=== PATIENT | female | born 1955 | race African-American/Black ===

== ENCOUNTER 2020-07-21 15:11 | Emergency (ER) | payer BC, SELFPAY ==
[2020-07-21] VITALS (9 sets, daily range): BP systolic 155–179; BP diastolic 62–94; PULSE 18–90; RESP 18–20; TEMP 36.8–37.3; O2SAT 97–98; BMI 25.2
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
[2020-07-21 17:57] LABS: Basophils Percent Auto 0.6 % (0-2); Eosinophils Absolute Auto 0.3 X10*3/uL (0.0-0.4); Hemoglobin 13.4 g/dl (12.0-16.0); Imm Gran Abs Auto 0.01 X10*3/uL (0.00-0.03); Imm Gran Pct Auto 0.2 % (0.0-0.4); Lymphocytes Absolute Auto 2.6 X10*3/uL (1.2-4.9); Lymphocytes Percent Auto 40.5 % (20-40); MANUAL DIFF FLAG NO; Mean Corpuscular HGB Conc 33.5 g/dl (31.0-35.0); Mean Corpuscular Hemoglobin 31.8 pg (27.0-33.0); Mean Corpuscular Volume 94.8 fL (80-98); Mean Platelet Volume 10.4 fL (9.4-12.3); Monocytes Absolute Auto 0.4 X10*3/uL (0.1-1.2); Monocytes Percent Auto 6.3 % (2-11); Neutrophils Absolute Auto 3.1 X10*3/uL (2.0-8.3); Neutrophils Percent Auto 48.4 % (45-73); Platelet Count 231 X10*3/uL (160-400); Red Blood Count 4.22 X10*6/uL (4.20-5.50); Red Cell Distribution Width 12.3 % (11.0-16.0); White Blood Count 6.5 X10*3/uL (4.8-10.8)
--- NOTE | 2020-07-21 17:57 | CT_ITS ---
EXAM: Noncontrast CT scan of the head and cervical spine. INDICATION: Dizziness with syncope. Acute on chronic neck pain after fall. COMPARISON: No similar prior imaging available for comparison at this institution. TECHNIQUE: Axial slices were obtained from skull base to vertex and displayed. This was followed by helical, multislice, multidetector axial images from the occiput to the upper thorax. Coronal and sagittal reformats of the cervical spine in addition to coronal reformats of the head were obtained at the technologist workstation. DLP: 1047 mGy-cm FINDINGS: HEAD: There is no evidence of acute intracranial hemorrhage or territorial infarction. No abnormal mass effect or midline shift is appreciated. Flores-white differentiation is well preserved. No extra-axial fluid collections. The ventricular system and cortical sulci are normal in size. There are minimal areas of low density in the periventricular and subcortical white matter, most consistent with sequelae of microvascular ischemic change. The osseous structures and soft tissues are normal. There are mild calcifications of the cavernous internal carotid arteries. The visualized paranasal sinuses and mastoid air cells are well aerated. Tiny suspected mucus tension cyst within the left maxillary sinus. SPINE: There is mild reversal of the normal cervical lordosis. Alignment is otherwise unremarkable. Vertebral body heights are well-maintained. There is mild narrowing of the C4/C5 and C5/C6 disc space heights. There are calcifications of the anterior and posterior longitudinal ligaments. A few small anterior osteophytes are noted. No prevertebral soft tissue swelling. Visualized lung apices are well aerated. CT/CT cervical spine wo con IMPRESSION: 1. No acute intracranial pathology. 2. No fractures or dislocations of the cervical spine. This CT examination was performed using dose optimization techniques as appropriate, variously including the following: *Automated exposure control *Adjustment of mA and/or kV according to patient size (this includes techniques or standardized protocols for targeted exams where dose is matched to indication/reason for exam; i.e. extremities or head) *Use of iterative reconstruction technique
[2020-07-21] MEDS: 0.9 % Sodium Chloride 1,000 ML 999 ML IVCONT ×2 (18:01→21:47)
[2020-07-21 18:30] LABS: Troponin-I High Sensitivity < 3.5 ng/L (<3.5-17.0)
[2020-07-21] MEDS: ondansetron HCL 4 MG/2 ML VIAL IVPUSH (18:30)
[2020-07-21] MEDS: ALPRAZolam 0.5 MG TABLET PO ×2 (18:30→19:31)
[2020-07-21] MEDS: SUMAtriptan succinate 25 MG TABLET PO (18:34)
[2020-07-21 18:49] LABS: Anion Gap 12 (12-20); Blood Urea Nitrogen 17 mg/dL (9-16); Carbon Dioxide 30 mmol/L (22-29); Chloride 101 mmol/L (96-108); Creatinine Clr Calc Pharmacy 51.4; Estimated Glomerular Filt Rate 55; Glucose Random 343 mg/dL (60-115); Potassium 4.8 mmol/l (3.3-5.1); Sodium 138 mmol/L (135-145)
== END 2020-07-21 22:56 | disposition home or self-care (01) ==
PROVIDERS: Emergency Provider Internal Medicine
DX: I95.1 Orthostatic hypotension (principal); H66.002 Acute suppurative otitis media without spontaneous rupture of ear drum, left ear; M54.2 Cervicalgia; F41.1 Generalized anxiety disorder; F43.0 Acute stress reaction; Z79.899 Other long term (current) drug therapy
CPT/HCPCS: 36415; 70450; 72125; 80048; 84484; 85025; 96361; 96374; 96375; 99284; J2405

== ENCOUNTER 2020-08-04 12:21 | Emergency (ER) | payer BC, SELFPAY ==
[2020-08-04 12:24] VITALS: PULSE 93; RESP 22; TEMP 36.6; O2SAT 98; BMI 24.4
== END 2020-08-04 14:40 | disposition left against medical advice (07) ==
PROVIDERS: Emergency Provider Emergency Medicine
DX: L23.9 Allergic contact dermatitis, unspecified cause (principal)
CPT/HCPCS: 99281; 99282

== ENCOUNTER 2020-08-06 11:29 | Emergency (ER) | payer BC, SELFPAY ==
[2020-08-06 11:43] VITALS: BP 148/80; BP 164/95; PULSE 86; PULSE 88; RESP 16; TEMP 36.5; O2SAT 100; BMI 24.7
--- NOTE | 2020-08-06 12:05 | PC.NURSE ---
pt refused to be placed on manager monitoring stating that she is allergic to glue and is afraid to have the manager monitoring stickers applied for fear of having/getting an allergic reaction.
--- NOTE | 2020-08-06 12:06 | ED.FALL ---
HPI - Fall General Chief Complaint: Fall Stated Complaint: syncope Time Seen by Provider: 08/06/20 11:57 Source: patient Mode of arrival: ambulatory Limitations: no limitations History of Present Illness HPI Narrative: 65-year-old female with a past medical history of asthma, depression, diabetes and migraines, multiple allergies here with complaints of fall. The patient tells me that she was at her doctor to follow-up for her ear infections and while standing she started to feel lightheaded and next thing she knew she was lying on the ground with people around her. She tells me that she has had previous episodes over the last few months. She tells me she has been seen by her primary care doctor and she has been seen here in this emergency department. Most recently she was seen July [address] scan of her head and neck which were unremarkable. Per patient her blood pressure changes when she changes positions and she received 2 L of fluid during that ER visit and felt much improved. She tells me she is unable to have EKGs because she has a severe allergic reaction to the adhesive in the stickers requiring her to receive an EpiPen. She tells me she refused to have an EKG due to this reaction during her last visit and she would not like to have 1 today during this visit. She also refused a cervical collar from EMS due to an allergy to the Styrofoam in the collar. She tells me she has multiple antibiotic allergies and was started recently on clindamycin for a presumed ear infection. She took 1 dose on August 04 and developed facial swelling. She tells me she spoke to her doctor and was recommended she go to the emergency department however when she got to the emergency department there was too long of a wait and she went home. She tells me that the swelling improved with several doses of Benadryl at home. She does continue to have ear pain and ear drainage which is bilateral. She also has dizziness with position changes. No other complaints. She does know she is very anxious and depressed about her multiple allergies. She is very tearful on arrival and on exam. She tells me she has been seen by 3 different allergists but they refused to do allergy testing because of her severe allergies. complaint: fall Fall from: standing Fall witnessed: yes, by family ( (no incontinence or seizure activity), +head strike ) Place fall occurred: other (doctor office ) Loss of consciousness: yes, seconds Length of LOC: second(s) Prolonged down time: no Symptoms prior to fall: lightheadedness Location of injury: head Severity: mild Associated symptoms (after fall): headache and lightheaded (w/ position changes) Related Data Previous Rx's Medication Instructions Recorded alprazolam [Xanax] 0.5 mg PO BID PRN #10 tab 07/21/20 doxycycline hyclate 100 mg PO BID #20 tab 07/21/20 mirtazapine [Remeron] 15 mg PO BEDTIME #10 tab 07/21/20 sumatriptan succinate 25 mg PO Q2-4H PRN #8 tab 07/21/20 azithromycin See Rx Instructions .ROUTE 08/06/20 .COMPLEX #6 tab Allergies Allergy/AdvReac Type Severity Reaction Status Date / Time acetaminophen [From Percocet] Allergy Unknown Verified 07/21/20 15:26 albuterol Allergy Unknown Verified 07/21/20 15:26 amitriptyline [From Elavil] Allergy Unknown Verified 07/21/20 15:26 amlodipine Allergy Unknown Verified 07/21/20 15:26 aspirin Allergy Unknown Verified 07/21/20 15:26 bismuth subsalicylate Allergy Unknown Verified 07/21/20 15:26 [From Pepto-Bismol] ciprofloxacin Allergy Unknown Verified 07/21/20 15:26 codeine Allergy Unknown Verified 07/21/20 15:26 copanlisib di-hydrochloride Allergy Unknown Verified 07/21/20 15:26 cyclobenzaprine Allergy Unknown Verified 07/21/20 15:26 [From Flexeril] erythromycin base Allergy Unknown Verified 07/21/20 15:26 fluoxetine [From Prozac] Allergy Unknown Verified 07/21/20 15:26 gabapentin [From Neurontin] Allergy Unknown Verified 07/21/20 15:26 hydromorphone [From Dilaudid] Allergy Unknown Verified 07/21/20 15:26 ketorolac [From Toradol] Allergy Unknown Verified 07/21/20 15:26 latex Allergy Unknown Verified 07/21/20 15:26 meperidine [From Demerol] Allergy Unknown Verified 07/21/20 15:26 morphine Allergy Unknown Verified 07/21/20 15:26 naproxen [From Naprosyn] Allergy Unknown Verified 07/21/20 15:26 oxycodone [From Percocet] Allergy Unknown Verified 07/21/20 15:26 penicillin G procaine Allergy Unknown Verified 07/21/20 15:26 propoxyphene [From Darvon] Allergy Unknown Verified 07/21/20 15:26 tramadol [From Ultram] Allergy Unknown Verified 07/21/20 15:26 venlafaxine [From Effexor] Allergy Unknown Verified 07/21/20 15:26 zolpidem [From Ambien] Allergy Unknown Verified 07/21/20 15:26 Review of Systems Review of Systems: Yes all other systems are reviewed and are negative Constitutional: Constitutional: Reports no additional constitutional complaints, Denies body ache(s), Denies chills, Denies fever(s), Reports frequent falls, Denies headache(s) and Denies weakness Eyes: Eyes: Reports no additional eye complaints and Denies change in vision ENT: Reports system reviewed and no additional complaints, except as documented, Reports dizziness, Reports ear discharge, Reports otalgia, Denies headache(s), Denies nasal congestion, Denies nasal discharge and Denies neck pain Cardiovascular: Cardiovascular: Reports no additional cardiovascular complaints, Denies chest pain, Denies leg edema and Denies dyspnea Respiratory: Respiratory: Reports no additional respiratory complaints, Denies cough and Denies dyspnea Gastrointestinal: Gastrointestinal: Reports no additional gastrointestinal complaints, Denies abdominal pain, Denies diarrhea, Denies nausea and Denies vomiting Genitourinary: Genitourinary: Reports no additional female genitourinary complaints and Denies urinary incontinence Musculoskeletal: Musculoskeletal: Reports no additional musculoskeletal complaints, Denies back pain, Denies arthralgias, Denies joint swelling, Denies neck pain, Denies numbness and Denies tingling Integumentary/Breasts: Skin/Breast: Reports system reviewed and no additional complaints, except as docu and Denies rash Neurologic: Reports system reviewed and no additional complaints, except as documented, Denies Abnormal speech present, Reports dizziness, Reports frequent falls, Denies headache(s), Denies numbness, Denies tingling and Denies weakness PMFSH Past Medical History Attestation statement: The following information was validated with the patient. Source: old records reviewed and nursing notes reviewed Medical History Asthma Depression Diabetes Migraine Social History Social History Smoking Status: Never smoker Use of substances other than those prescribed or required for medical reasons: No Advance Directives: No Advance Directives Information Provided: No Physical Exam Vital Signs: Vital Signs: Last Vital Signs Temp 97.9 F 08/06/20 16:17 Pulse 86 08/06/20 16:17 Resp 16 08/06/20 16:17 BP 152/100 H 08/06/20 16:17 Pulse Ox 99 08/06/20 16:17 Body Mass Index 24.7 Const: General: cooperative, healthy appearing, comfortable and no acute distress Orientation/consciousness: patient oriented x3 Limitations: no limitations HENMT: Head: Yes normal to inspection Ears: hearing grossly normal bilaterally, external ears normal, mastoids normal, no periauricular adenopathy, Abnormal EAC present erythema (mild ) and edema (mild ); no otic discharge, external ear abnormal and TM abnormal (mild bulging/dullness bilaterally. TM intact) General nose exam: Normal external nose present Face and sinus: Yes normal facial exam Mouth: Normal oral and palatal mucosa present Throat: Yes posterior oropharynx normal Eyes: General: appearance normal, both eyes and all related structures Pupils: Equal, round and reactive pupils present Neck: Neck: Yes normal visual inspection Chest: Chest palpation & inspection: normal inspection of the chest Resp: Effort & Inspection: normal respiratory effort Auscultation: clear to auscultation bilaterally Cardio: Rate: regular rate Rhythm: regular rhythm Peripheral pulses: Peripheral pulses 2+ throughout GI: Inspection: Yes normal to inspection Palpation (GI): Soft to palpation and nontender Auscultation: normal bowel sounds Back/Spine/Pelvis: Thoracic/Lumbar Spine: thoracic and lumbar spine normal to inspection Skin: General skin exam: no rashes or lesions noted Neuro: General: patient oriented x3, Normal light touch and pain sensation, no focal motor deficits, normal sensation to monofilament and Unable to assess gait Cranial nerves: Yes CN's II-XII intact bilaterally, Yes Equal, round and reactive pupils present, Yes Bilaterally intact EOM present, Yes Nystagmus not present, Yes Normal facial strength present and Yes Midline tongue present Cognition (Neuro): normal cognition Speech: No Abnormal speech present Gait exam (Neuro): Unable to assess gait Motor exam (neuro): 5/5 motor strength present throughout Sensory Exam: Normal double simultaneous stimulation for sensation Deep tendon reflexes (DTR's): Right patellar reflex intensity grade: 2+ and Left patellar reflex intensity grade: 2+ Coordination: [id number] test normal and duyd-[id number] test normal Extrem: General: Yes normal to inspection Course Course Course Narrative: 65-year-old female here with reports of a fall and possible syncopal episode with history of same. Preceding symptoms of feeling lightheaded and dizzy. Also complaining otalgia and bilateral ear discharge with known otitis. Patient has multiple medication allergies well as non medication allergies and recently tried a dose of clindamycin for her ears but had a allergic reaction to this. She is currently untreated. She was at her primary care doctor today for an appointment when this episode happened. On arrival she has stable vital signs. She is very anxious and tearful. She has complaints of headache but tells me she had this prior to her fall and has had this for quite some time. No overt injuries. Normal neurological exam. I did explain to the patient that I would like to do a CT scan of her head. She declined this as she is concerned that she just had a CT scan on July 21 and she does not want to be exposed to radiation. I explained to her that she may have an injury and CT scan is the best way to evaluate this but she did decline understanding that there may be a small area of bleeding or a fracture there that I cannot tell by exam. I also asked the patient if we could perform an EKG. She tells me that she has a severe allergic reaction to the adhesive and the EKG stickers and does not want to have one. On review of the note from her last visit this was also remarked on. I did offer to premedicate the patient and offered some reassurance that she is in a safe place and we can watch her closely if she were to have as allergic reaction. However, she declined the EKG knowing that she may have an abnormal cardiac rhythm or signs of ischemia on her EKG. The patient did agree to have labs and orthostatic vital signs done. During the entire exam she is very tearful, anxious, admits to depression. She denies suicidal ideation. She tells me she is very frustrated with her multiple allergies and feels like no one is listening or able to help her. I did offer some reassurment at the bedside. She tells me she has seen multiple allergies but they refused to do allergy testing on her due to her severe allergies. I find this unlikely and I did advise the patient to seek care elsewhere. Patient shows me pictures on her phone of her severe allergic reactions in which she has some mild redness over the chest and bilateral periorbital swelling drainage and injection. Will have care team come and speak to patient. 1400-labs reviewed and unremarkable. Reviewed patient's orthostatics. There was a 10 bpm increase in her heart rate but her blood pressure was stable. However, she felt very symptomatic felt dizzy and lightheaded and had to be assisted back to the bed. Will give normal saline bolus x 2 and reassess. 1730-Went to re-evaluate patient as her IV fluids are done. She tells me she feels less dizzy but has a AGUILERA. I reiterated with the patient that I would like to do a CT of her head. She declined this and is aware she may have a underlying injury such as an ICH. She does not want to be exposed to any radiation. I discussed minimal exposure but she declined. Offered tylenol but patient refused this as she is allergic to aspirin and she is concerned tylenol has aspirin in it. I explained to her that it does not have aspirin in it but she continues to tell me she is allergic. After lengthy discussion and review of allergies list with patient she has agreed on azithromycin x 5 days for her bilateral AOM which is mild. I offered that the patient can wait as her exam is mild and she can follow-up with her PCP but she declined this and was like to be treated with antibiotics as she previously had a TM rupture from an untreated AOM and she does not want this to happen again. I did explain to her that I cannot guarantee she will not have an allergic reaction although from pictures she shows me most of her allergic reactions seem mild and she has none that are typical for anaphylaxis. The patient is frustrated that we do not seem to have an explanation for her allergy symptoms and I discussed with her that the ED does not do allergy testing. She should seek a second opinion from another montessori paraprofessional if she does not feel like her needs are not being met. Patient made multiple requests to me for xanax refills however seen here 07/21 and provided a refill of 10 tabs. I recommended the patient call her PCP for a refill as I do not feel comfortable providing another refill. Patient ambulated with steady gait. Stable vital signs on discharge. MDM - Fall Medical Records Attestation: I reviewed the patient's medical records. Lab Data Attestation: I reviewed the patient's lab results. Result diagrams: 08/06/20 13:12 08/06/20 13:12 Labs: Lab Results 08/06/20 08/06/20 08/06/20 Range/Units 13:12 13:12 13:12 WBC 5.4 (4.8-10.8) X10*3/uL RBC 4.15 L (4.20-5.50) X10*6/uL Hgb 13.4 (12.0-16.0) g/dl Hct 39.1 (37-47) % MCV 94.2 (80-98) fL MCH 32.3 (27.0-33.0) pg MCHC 34.3 (31.0-35.0) g/dl RDW 12.2 (11.0-16.0) % Plt Count 229 (160-400) X10*3/uL MPV 9.8 (9.4-12.3) fL Immature Gran % (Auto) 0.2 (0.0-0.4) % Neut % (Auto) 44.8 L (45-73) % Lymph % (Auto) 43.8 H (20-40) % [place] % (Auto) 6.3 (2-11) % Eos % (Auto) 4.2 H (0-4) % Baso % (Auto) 0.7 (0-2) % Lymph # (Auto) 2.4 (1.2-4.9) X10*3/uL [place] # (Auto) 0.3 (0.1-1.2) X10*3/uL Eos # (Auto) 0.2 (0.0-0.4) X10*3/uL Baso # (Auto) 0.0 (0.0-0.2) X10*3/uL Abs Immat Gran (auto) 0.01 (0.00-0.03) X10*3/uL Absolute Neuts (auto) 2.4 (2.0-8.3) X10*3/uL Absolute Nucleated RBC 0.000 (0.0-0.012) X10*3/uL Nucleated RBC % (auto) 0.0 (0.0-0.2) /100WBC Sodium 138 (135-145) mmol/L Potassium 4.4 (3.3-5.1) mmol/l Chloride 101 (96-108) mmol/L Carbon Dioxide 33 H (22-29) mmol/L Anion Gap 8 L (12-20) BUN 15 (9-16) mg/dL Creatinine 0.93 (0.5-1.4) mg/dL Estim Creat Clear Calc 51.3 Estimated GFR > 60 Random Glucose 278 H (60-115) mg/dL Calcium 9.1 (8.4-10.2) mg/dL Magnesium 1.9 (1.6-2.6) mg/dL Total Bilirubin 0.5 (0.0-1.0) mg/dL Direct Bilirubin 0.2 (0.0-0.5) mg/dL AST 15 (5-31) U/L ALT 14 (0-31) U/L Alkaline Phosphatase 64 (39-117) U/L Troponin I High Sens < 3.5 (<3.5-17.0) ng/L Total Protein 6.7 (6.5-8.0) g/dL Albumin 3.8 (3.5-5.0) g/dL Discharge Plan Discharge Clinical Impression: Fall Qualifiers: Encounter type: initial encounter Qualified Code(s): W19.XXXA - Unspecified fall, initial encounter Otitis externa Qualifiers: Otitis externa type: unspecified type Chronicity: chronic Laterality: bilateral Qualified Code(s): H60.63 - Unspecified chronic otitis externa, bilateral Otitis media Qualifiers: Otitis media type: unspecified Chronicity: acute Qualified Code(s): H66.90 - Otitis media, unspecified, unspecified ear Patient Disposition: Home, Self-Care Instructions: Ear Infection (ED), Fall Prevention (ED) Additional Instructions: You need to seek another opinion for an montessori paraprofessional. You need allergy testing and they are used to working with patient with severe allergies. You were offered and EKG and a CT scan of head but you declined this. You need to call your PCP for a refill for your xanax. The emergency department cannot be responsible for filling your home medications. Prescriptions: New azithromycin 250 mg tablet See Rx Instructions .ROUTE .COMPLEX Qty: 6 RF: 0 No Action sumatriptan succinate 25 mg tablet 25 mg PO Q2-4H PRN (Reason: migraine headache) Qty: 8 RF: 0 alprazolam [Xanax] 0.5 mg tablet 0.5 mg PO BID PRN (Reason: anxiety) Qty: 10 RF: 0 mirtazapine [Remeron] 15 mg tablet 15 mg PO BEDTIME Qty: 10 RF: 0 doxycycline hyclate 100 mg tablet 100 mg PO BID Qty: 20 RF: 0 Referrals: Karyna Rodriguez, [employer]PER[employer] [Primary Care Provider] - 2 days Interventions: ED Discharge Assessment Last Done: 08/06/20 18:12 Discharge Date/Time: 08/06/20 18:13
[2020-08-06 12:34] VITALS: BP 155/84; PULSE 82; RESP 18; TEMP 36.6; O2SAT 97
[2020-08-06 12:39] VITALS: BP 168/91; PULSE 87
[2020-08-06 12:40] VITALS: BP 169/90; PULSE 86
[2020-08-06 13:16] LABS: MANUAL DIFF FLAG NO
[2020-08-06 13:18] LABS: Basophils Percent Auto 0.7 % (0-2); Eosinophils Absolute Auto 0.2 X10*3/uL (0.0-0.4); Eosinophils Percent Auto 4.2 % (0-4); Hematocrit 39.1 % (37-47); Hemoglobin 13.4 g/dl (12.0-16.0); Imm Gran Abs Auto 0.01 X10*3/uL (0.00-0.03); Imm Gran Pct Auto 0.2 % (0.0-0.4); Lymphocytes Absolute Auto 2.4 X10*3/uL (1.2-4.9); Lymphocytes Percent Auto 43.8 % (20-40); Mean Corpuscular HGB Conc 34.3 g/dl (31.0-35.0); Mean Corpuscular Hemoglobin 32.3 pg (27.0-33.0); Mean Corpuscular Volume 94.2 fL (80-98); Mean Platelet Volume 9.8 fL (9.4-12.3); Monocytes Absolute Auto 0.3 X10*3/uL (0.1-1.2); Monocytes Percent Auto 6.3 % (2-11); Neutrophils Absolute Auto 2.4 X10*3/uL (2.0-8.3); Neutrophils Percent Auto 44.8 % (45-73); Platelet Count 229 X10*3/uL (160-400); Red Blood Count 4.15 X10*6/uL (4.20-5.50); Red Cell Distribution Width 12.2 % (11.0-16.0); White Blood Count 5.4 X10*3/uL (4.8-10.8)
[2020-08-06 13:35] VITALS: BP 160/87; PULSE 82; RESP 16; TEMP 36.7; O2SAT 100
[2020-08-06 13:41] LABS: Alanine Aminotransferase 14 U/L (0-31); Albumin Level 3.8 g/dL (3.5-5.0); Alkaline Phosphatase 64 U/L (39-117); Anion Gap 8 (12-20); Aspartate Amino Transferase 15 U/L (5-31); Bilirubin Direct 0.2 mg/dL (0.0-0.5); Bilirubin Total 0.5 mg/dL (0.0-1.0); Blood Urea Nitrogen 15 mg/dL (9-16); Calcium 9.1 mg/dL (8.4-10.2); Carbon Dioxide 33 mmol/L (22-29); Chloride 101 mmol/L (96-108); Creatinine Clr Calc Pharmacy 51.3; Estimated Glomerular Filt Rate > 60; Glucose Random 278 mg/dL (60-115); Magnesium 1.9 mg/dL (1.6-2.6); Potassium 4.4 mmol/l (3.3-5.1); Sodium 138 mmol/L (135-145); Total Protein 6.7 g/dL (6.5-8.0)
[2020-08-06] MEDS: ALPRAZolam 0.25 MG TABLET 0.5 MG PO (13:43)
[2020-08-06 13:45] LABS: Troponin-I High Sensitivity < 3.5 ng/L (<3.5-17.0)
[2020-08-06] MEDS: 0.9 % Sodium Chloride 2,000 ML 999 ML IV (14:24)
--- NOTE | 2020-08-06 14:50 | MHC.CARE ---
CARE Team met with Pt secondary to consult placed for depressed/anxious . Pt presented as tearful expressing frustrations with feeling not heard related to her medical concerns not being validated. Pt reports she currently sees a therapist, Melanie Joyner ([phone]) - [facility]. Pt reports she sees her for telehealth and isn't able to see termite control representative due to the service provided. Pt reports she currently sees a psychiatrist through [facility] however feels they aren't receptive to her needs. Pt gave t/w to reach out to her therapist regarding transition plan due to nature of the short term services. CARE Team left a VM for Pts therapist. Pt reported she is interested in other providers for treatment of her anxiety and PTSD. Pt denies current SI/HI or history of [facility] admissions. Pt and CARE Team discussed crisis services and different treatment levels of care. CARE Team to refer Pt to [facility] for Telehealth therapy/ psychiatry. Pt made aware due to holiday, Pt likely wont be follow up with till mid-week.
[2020-08-06 16:17] VITALS: BP 152/100; PULSE 86; RESP 16; TEMP 36.6; O2SAT 99
--- NOTE | 2020-08-10 08:47 | MHC.CARE ---
CARE Team recieved a follow up call from Pts social work - Melanie Joyner who reported she will follow up with Pt directly.
== END 2020-08-06 18:13 | disposition home or self-care (01) ==
PROVIDERS: Nurse Practitioner Family; Emergency Provider Emergency Medicine Emergency Medical Services; PCP Nurse Practitioner Primary Care
DX: H60.63 Unspecified chronic otitis externa, bilateral (principal); H66.93 Otitis media, unspecified, bilateral; H92.03 Otalgia, bilateral; F33.1 Major depressive disorder, recurrent, moderate; R55 Syncope and collapse; Z79.899 Other long term (current) drug therapy
CPT/HCPCS: 36415; 80048; 80076; 83735; 84484; 85025; 96360; 96361; 99284